=== PATIENT | male | born 1950 | race Caucasian/White ===

== ENCOUNTER 2022-08-21 00:08 | Emergency (ER) | payer MEDICARE, MEDICAID, SELFPAY ==
--- NOTE | ~2022-08-21 | XR_ITS ---
EXAMINATION: XR CHEST CLINICAL INFORMATION: Question pneumonia COMPARISON: None available. TECHNIQUE: Frontal view of the chest was obtained. FINDINGS: Lung volumes are low. Bronchial wall thickening. No dense consolidation. No pleural effusion or pneumothorax. The cardiomediastinal silhouette is within normal limits. XR/XR chest 1V IMPRESSION: No dense consolidation. Bronchial wall thickening can be seen with a small airways process such as asthma or atypical/viral infection.
--- NOTE | ~2022-08-21 | CT_ITS ---
EXAMINATION: CT ABDOMEN AND PELVIS WITHOUT CONTRAST CLINICAL INFORMATION: Left lower quadrant pain. COMPARISON: None available. TECHNIQUE: Multidetector volumetric imaging was performed from the superior aspect of the liver through the pubic symphysis. Sagittal and coronal reformatted images were obtained on the technologist's workstation. This CT examination was performed using dose optimization techniques as appropriate, variously including the following: *Automated exposure control *Adjustment of mA and/or kV according to patient size (this includes techniques or standardized protocols for targeted exams where dose is matched to indication/reason for exam; i.e. extremities or head) *Use of iterative reconstruction technique DLP: 787 mGy-cm FINDINGS: LUNG BASES: Hazy opacity at the right base. Linear bibasilar atelectasis. Coronary artery calcifications. LIVER, GALLBLADDER, AND BILIARY TREE: The liver is normal in size, shape, and attenuation. No focal hepatic lesion or biliary ductal dilatation is present. The gallbladder is unremarkable with no evidence of radiopaque gallstones, gallbladder wall thickening, or obvious pericholecystic inflammatory changes. PANCREAS: Unremarkable. SPLEEN: Unremarkable. ADRENAL GLANDS: Unremarkable. KIDNEYS AND URETERS: The kidneys are normal in size, shape, and attenuation. No hydronephrosis, hydroureter, or calculi seen. No perinephric stranding. Simple cyst at the midpole of the left kidney. No specific follow-up recommended. BLADDER: Unremarkable. GASTROINTESTINAL TRACT: The stomach is unremarkable. Normal caliber small bowel. No obstruction. Normal appendix. No colonic wall thickening or acute inflammation. Mild colonic stool burden. No free air or free fluid. ABDOMINAL WALL: No significant hernia is appreciated. LYMPH NODES: Normal. VASCULAR: Normal caliber aorta with mild atherosclerotic calcification. PELVIC VISCERA: The prostate and seminal vesicles are unremarkable. OSSEOUS STRUCTURES: No acute or suspicious osseous abnormality. Degenerative change throughout the spine. Mild degenerative changes of the hips. CT/CT abdomen pelvis wo IV con IMPRESSION: 1. No acute findings in the abdomen or pelvis. No inflammatory changes. Mild colonic stool burden. 2. Hazy opacity at the right base could be infectious or inflammatory. This could be atelectatic. Fleischner guidelines were followed.
[2022-08-21 00:33] VITALS: BP 109/68; PULSE 96; RESP 16; TEMP 36.9; O2SAT 95; BMI 29.0
--- NOTE | 2022-08-21 00:54 | ED.ABDPAIN ---
HPI - Abdominal Pain General Chief Complaint: Abdominal Pain Stated Complaint: Severe abdominal pain, bruising Time Seen by Provider: 08/21/22 00:54 History of Present Illness HPI narrative: Patient is 71 years old from senior living with history of intellectual disability, schizophrenia, IBS, CVA, diabetes, depression, hypertension, HPL brought by caregiver for diffuse abdominal pain since morning today vomited 2 times after dinner patient with limited HPI but making sense fairly. No fever no diarrhea patient complaining of pain more on the left side than the right slightly distended abdomen. Related Data Allergies Allergy/AdvReac Type Severity Reaction Status Date / Time No Known Allergies Allergy Verified 08/21/22 01:02 Review of Systems Review of Systems Yes Unobtainable due to mental status (Intellectual disability) [facility] Past Medical History Medical History (Updated 08/21/22 @ 03:18 by Wayne Maradiaga MD) Depression Diabetes mellitus History of IBS Hyperlipidemia Hypertension Intellectual disability Schizophrenia Social History Social History Alcohol intake: never Smoked in Last 30 Days: No Use of substances other than those prescribed or required for medical reasons: No Advance Directives: No Physical Exam ED Vital Signs: Vital Signs - 24 hr 08/21/22 00:33 08/21/22 03:05 Temperature 98.5 F Pulse Rate 96 90 Respiratory Rate 16 20 Blood Pressure 109/68 146/90 H Pulse Oximetry 95 96 Oxygen Delivery Method Room Air Room Air BMI result Body Mass Index 29.0 Appearance: Alert. Oriented X2. In mild distress. Eyes: PERRLA, No Nystagmus ENT: Pharynx normal. Oral Mucosa moist Neck: Normal inspection. Neck supple. CVS: Normal heart rate and rhythm. Pulses normal. Respiratory: No respiratory distress. Equal air entry bilateral, no wheezing/rales/rhonchi Abdomen: Soft gaseous distended dip tenderness left lower quadrant no guarding or rebound tenderness Bowel sounds are present, no mass palpable, no CVA tenderness Skin: Skin warm and dry. Normal skin color. Normal skin turgor. Extremities: No lower extremity edema. No calf tenderness Neuro: Oriented X 2. No motor deficit. Medical Decision Making Medical Decision Making MDM Narrative: Patient with nonspecific abdominal pain CT scan negative for acute pathology had elevated lactic acid level was normal CBC count likely from metformin use patient feels comfortable after arrival in the ER taking p.o. fluids discharge patient senior living advised to follow-up with PCP Lab Data MDM Lab Attestation statement: I reviewed the patient's lab results. 08/21/22 01:08/21/22 01:26 Labs: Lab Results 08/21/22 08/21/22 08/21/22 Range/Units 01: 01:26 01:26 WBC 5.4 (4.8-10.8) X10*3/uL RBC 4.20 L (4.60-5.80) X10*6/uL Hgb 12.8 L (14.0-18.0) g/dl Hct 38.9 L (42.0-52.0) % MCV 92.6 (80.0-98.0) fL MCH 30.5 (27.0-33.0) pg MCHC 32.9 (31.0-36.0) g/dl RDW 14.1 (11.0-16.0) % Plt Count 146 L (160-400) X10*3/uL MPV 9.0 L (9.4-12.4) fL Immature Gran % (Auto) 1.7 H (0.0-0.4) % Neut % (Auto) 46.6 (45-73) % Lymph % (Auto) 29.0 (20-40) % Ransom % (Auto) 17.8 H (2-11) % Eos % (Auto) 4.3 H (0-4) % Baso % (Auto) 0.6 (0-2) % Lymph # (Auto) 1.6 (1.2-4.9) X10*3/uL Ransom # (Auto) 1.0 (0.1-1.2) X10*3/uL Eos # (Auto) 0.2 (0.0-0.4) X10*3/uL Baso # (Auto) 0.0 (0.0-0.2) X10*3/uL Abs Immat Gran (auto) 0.09 H (0.00-0.03) X10*3/uL Absolute Neuts (auto) 2.5 (2.0-8.3) x10*3/uL Absolute Nucleated RBC 0.020 H (0.0-0.012) X10*3/uL Nucleated RBC % (auto) 0.4 H (0.0-0.2) /100WBC Sodium 135 (135-145) mmol/L Potassium 4.6 (3.3-5.1) mmol/L Chloride 102 (96-108) mmol/L Carbon Dioxide 22 (22-29) mmol/L Anion Gap 16 (12-20) BUN 16 (9-16) mg/dL Creatinine 0.98 (0.5-1.4) mg/dL Estim Creat Clear Calc 67.3 Estimated GFR > 60 Random Glucose 107 (60-115) mg/dL Lactic Acid 3.3 H* (0.5-2.0) mmol/L Calcium 8.9 (8.4-10.2) mg/dL Total Bilirubin 0.3 (0.0-1.0) mg/dL AST 16 (5-37) U/L ALT 6 (0-40) U/L Alkaline Phosphatase 55 (39-117) U/L Total Protein 6.0 L (6.5-8.0) g/dL Albumin 3.6 (3.5-5.0) g/dL Lipase 23 (8-78) U/L Medications Administered Discontinued Medications Generic Name Dose Route Start Last Admin Trade Name Freq PRN Reason Stop Dose Admin Sodium Chloride 1,000 mls @ 999 mls/hr 08/21/22 01:02 08/21/22 03:43 Ns IV 08/21/22 02:02 Infused .Q1H1M ONE Infusion Sodium Chloride 1,000 mls @ 999 mls/hr 08/21/22 01:48 08/21/22 03:00 Ns IV 08/21/22 02:48 Infused .Q1H1M ONE Infusion Piperacillin Sod/Tazobactam 50 mls @ 100 mls/hr 08/21/22 01:48 08/21/22 02:35 Sod 3.375 gm/ Sodium Chloride IV 08/21/22 02:17 Infused ONCE ONE Infusion Morphine Sulfate 4 mg 08/21/22 01:03 08/21/22 01:53 Morphine Sulfate 4 Mg/Ml Cartridge IVPUSH 08/21/22 01:04 4 mg ONCE ONE Administration Protocol Ondansetron HCl 4 mg 08/21/22 01:03 08/21/22 01:57 Ondansetron Hcl 4 Mg/2 Ml Vial IVPUSH 08/21/22 01:04 4 mg ONCE ONE Administration Discharge Plan Discharge Clinical Impression: Gastroenteritis Patient Disposition: Home, Self-Care Instructions: Gastroenteritis (ED) Additional Instructions: Drink plenty of fluids Follow-up with your PCP as needed Interventions: ED Discharge Assessment Last Done: 08/21/22 03:41
[2022-08-21 01:40] LABS: Basophils Percent Auto 0.6 % (0-2); Eosinophils Absolute Auto 0.2 X10*3/uL (0.0-0.4); Eosinophils Percent Auto 4.3 % (0-4); Hematocrit 38.9 % (42.0-52.0); Hemoglobin 12.8 g/dl (14.0-18.0); Imm Gran Abs Auto 0.09 X10*3/uL (0.00-0.03); Imm Gran Pct Auto 1.7 % (0.0-0.4); Lymphocytes Absolute Auto 1.6 X10*3/uL (1.2-4.9); Mean Corpuscular HGB Conc 32.9 g/dl (31.0-36.0); Mean Corpuscular Hemoglobin 30.5 pg (27.0-33.0); Mean Corpuscular Volume 92.6 fL (80.0-98.0); Monocytes Percent Auto 17.8 % (2-11); NRBC Pct Auto 0.4 /100WBC (0.0-0.2); Neutrophils Absolute Auto 2.5 x10*3/uL (2.0-8.3); Neutrophils Percent Auto 46.6 % (45-73); PLT CLUMP 1; Red Cell Distribution Width 14.1 % (11.0-16.0); SCAN SMEAR FLAG 1; White Blood Count 5.4 X10*3/uL (4.8-10.8)
[2022-08-21 01:41] LABS: MANUAL DIFF FLAG NO
--- OUTSIDE RECORDS SUMMARY | 2022-08-21 01:43 | XMS_ITS ---
:1950 Author Care Team Providers Name Role Phone HANG MARTÍNEZ MD Primary Care Provider [phone] Allergies Code Code System Name Reaction Severity Status Onset NKDA ? Medications Name Status Start Date Stop Date ? ? amoxicillin 875 mg-potassium clavulanate 125 mg tablet Completed ? 08/20/2021 aspirin 81 mg chewable tablet Completed ? TAKE 1 TABLET BY MOUTH EVERY DAY aspirin 81 mg tablet,delayed release Active ? Not available atorvastatin 20 mg tablet Active ? Not av ailable Basaglar KwikPen U-100 Insulin 100 unit/mL (3 mL) Active ? Not available subcutaneous BD Ultra-Fine Short Pen Needle 31 gauge x /16 Active ? Not available benztropine 0.5 mg tablet Active ? Not av ailable benztropine 1 mg tablet Active ? Not avai lable calcium carbonate 200 mg calcium (500 mg) chewable Active ? Not available tablet carbidopa 25 mg-levodopa 100 mg tablet Active ? Not available cefpodoxime 100 mg tablet Completed ? 2021 TAKE 1 TABLET BY MOUTH EVERY 12 HOURS FOR 4 DAYS cefuroxime axetil 500 mg tablet Active ? Not available dicyclomine 10 mg capsule Completed ? 2021 divalproex 125 mg capsule,delayed release sprinkle Active ? Not available divalproex 250 mg tablet,delayed release Completed ? 08/20/2021 TAKE 1 TABLET BY MOUTH THREE TIMES A DAY divalproex 500 mg tablet,delayed release Active ? Not available docusate sodium 100 mg capsule Completed ? 0 08/20/2021 doxycycline hyclate 100 mg tablet Completed ? 08/20/2021 duloxetine 20 mg capsule,delayed release Completed ? 08/20/2021 duloxetine 40 mg capsule,delayed release Completed ? 08/20/2021 duloxetine 60 mg capsule,delayed release Completed ? 08/20/2021 escitalopram 5 mg/5 mL oral solution Active ? Not available gabapentin 100 mg capsule Completed ? 2021 gabapentin 300 mg capsule Active ? Not av ailable Invega Sustenna 117 mg/0.75 mL intramuscular syringe Completed ? 08/20/2021 lactulose 10 gram/15 mL oral solution Completed ? 08/20/2021 TAKE 2 TABLESPOONS BY MOUTH EVERY DAY NEEDED FOR CONSTIPATIO N lisinopril 20 mg tablet Active ? Not avai lable lorazepam 0.5 mg tablet Active ? Not avai lable melatonin 3 mg tablet Active ? Not availa ble melatonin 5 mg tablet Completed ? 08/20/2021 TAKE 1 TABLET BY MOUTH EVERY DAY AT BEDTIME metformin 1,000 mg tablet Active ? Not av ailable metformin 500 mg tablet Completed ? 08/21/19 22 mirtazapine 15 mg disintegrating tablet Active ? Not available mirtazapine 15 mg tablet Active ? Not dodie ilable Natural Fiber Laxative 0.52 gram capsule Active ? Not available olanzapine 2.5 mg tablet Completed ? olanzapine 5 mg disintegrating tablet Completed ? 08/20/2021 omeprazole 20 mg capsule,delayed release Active ? Not available ondansetron 4 mg disintegrating tablet Active ? Not available Pain and Fever 325 mg tablet Active ? Not available polyethylene glycol 3350 17 gram/dose oral powder Active ? Not available Prodigy No Coding strips Active ? Not dodie ilable Prodigy Twist Top Lancet 28 gauge Active ? Not available risperidone 0.5 mg disintegrating tablet Completed ? 08/20/2021 risperidone 1 mg disintegrating tablet Completed ? 08/20/2021 risperidone 1 mg tablet Active ? Not avai lable risperidone 4 mg tablet Completed ? 08/21/19 22 senna 8.6 mg tablet Completed ? 08/20/2021 TAKE 2 TABLETS BY MOUTH AT BEDTIME NEEDED FOR CONSTIPATION Senna Plus 8.6 mg-50 mg tablet Completed ? 0 08/20/2021 sertraline 25 mg tablet Completed ? 08/21/19 22 sertraline 50 mg tablet Active ? Not avai lable Silace 50 mg/5 mL oral liquid Completed ? simvastatin 10 mg tablet Completed ? 022 tamsulosin 0.4 mg capsule Active ? Not av ailable topiramate 50 mg tablet Active ? Not avai lable trazodone 50 mg tablet Completed ? triamcinolone acetonide 0.1 % topical cream Completed ? 08/20/2021 Trulicity 0.75 mg/0.5 mL subcutaneous pen injector Active ? Not available Vitamin D3 25 mcg (1,000 unit) capsule Active ? Not available Problems None recorded. Procedures Date Name Performed by ? 08/20/2021 US, Head + Neck, Soft Tissue [facility] [employer] [facility] [address] [place] [address] (Work Place) Results Lab Results None recorded. Past Encounters Encounter Date Diagnosis Provider 08/20/2021 Swelling of Eyelid Leah Cagle NP, S: [address], [place], [place] [id number], Ph. [phone] Social History Tobacco Smoking Status Vaccine List None recorded. Plan of Care Patient Instructions Thank you for your visit with [facility] today. We cannot always find the exact cause of your symptoms during your initial visit. Please follow up with your primary care provider or specialist with in 2-3 days to be rechecked or seek [facility] attention if your symptoms do not go away or get worse. If you develop any new or worsening symptoms and need after hours care, please go to nearest ER and/or call 911. If you have additional concerns or deve lop a change in your condition between 8am-10pm, please call [facility] at [phone] to help navigate your care. Reminders Provider Appointments None recorded. ? ? Lab None recorded. ? ? Referral None recorded. ? ? Procedures None recorded. ? ? Surgeries None recorded. ? ? Imaging None recorded. ? ? Vitals Blood Pressure 136/72 mm[Hg]
[2022-08-21 01:46] LABS: Lactic Acid 3.3 mmol/L (0.5-2.0)
[2022-08-21 01:48] LABS: Alanine Aminotransferase 6 U/L (0-40); Albumin Level 3.6 g/dL (3.5-5.0); Alkaline Phosphatase 55 U/L (39-117); Anion Gap 16 (12-20); Aspartate Amino Transferase 16 U/L (5-37); Bilirubin Total 0.3 mg/dL (0.0-1.0); Blood Urea Nitrogen 16 mg/dL (9-16); Calcium 8.9 mg/dL (8.4-10.2); Carbon Dioxide 22 mmol/L (22-29); Chloride 102 mmol/L (96-108); Creatinine Clr Calc Pharmacy 67.3; Estimated Glomerular Filt Rate > 60; Glucose Random 107 mg/dL (60-115); Lipase 23 U/L (8-78); Potassium 4.6 mmol/L (3.3-5.1); Sodium 135 mmol/L (135-145)
[2022-08-21] MEDS: Morphine Sulfate 4 MG/ML CARTRIDGE IVPUSH (01:53)
[2022-08-21] MEDS: 0.9 % Sodium Chloride 1,000 ML 999 ML IV ×2 (01:56→01:57)
[2022-08-21] MEDS: ondansetron HCL 4 MG/2 ML VIAL IVPUSH (01:57)
[2022-08-21] MEDS: Piperacillin Sodium/Tazobactam 3.375 GM in 0.9 % Sodium Chloride 50 ML IV (02:02)
[2022-08-21 02:29] LABS: Platelet Count 146 X10*3/uL (160-400)
--- NOTE | 2022-08-21 02:45 | PC.NURSE ---
Pt A&O to self, [place] speaking repetitive stating he is in pain, pointing to ABD area. Pt from custodial, male staff at bedside. ABD distended, tender to touch. Staff unable to answer Pt medical hx/ last BM. Pt stated he hasn't eating in 2 days, staff reports he has been tolerating PO fluids/food. IV line placed, meds given as documented. 2nd lactic acid lab not drawn, provider Dr. Maradiaga aware.
[2022-08-21 03:05] VITALS: BP 146/90; PULSE 90; RESP 20; O2SAT 96
[2022-08-21 03:30] LABS: Reflex Lactate? Lactic Acid Added
== END 2022-08-21 03:41 | disposition home or self-care (01) ==
PROVIDERS: Emergency Provider Internal Medicine; PCP Internal Medicine
DX: K52.9 Noninfective gastroenteritis and colitis, unspecified (principal); R10.13 Epigastric pain; R07.89 Other chest pain; Z79.899 Other long term (current) drug therapy
CPT/HCPCS: 36415; 71045; 74176; 80053; 83605; 83690; 85025; 87040; 96361; 96374; 96375; 99284; J2270; J2405; J2543